=== PATIENT | female | born 1995 | race Caucasian/White ===

== ENCOUNTER 2024-06-19 05:21 | Emergency (ER) | payer OTHER ==
[2024-06-19] MEDS: HYDROcodone/APAP 5-325MG 1 EACH TAB PO STA (05:48)
[2024-06-19] MEDS: PROPARACAINE 0.5% OPHTH DROPS 15 ML BTL LEFT EYE STA (06:24)
[2024-06-19] MEDS: FLUORESCEIN STRIPS 1 MG STRIP LEFT EYE ONE (06:24)
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
[2024-06-19] MEDS: TOPICAL SKIN ADHESIVE 1 EACH AMP TOPICAL ONE (06:46)
[2024-06-19] MEDS: HYDROmorphone 1 MG/ML 1 ML SYRINGE IM STA (06:48)
[2024-06-19] MEDS: oxyCODONE-APAP 10-325MG 1 EACH TAB PO STA (06:54)
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
[2024-06-19] MEDS: ONDANSETRON 4 MG/2 ML VIAL IM STA (07:16)
[2024-06-19 07:38] VITALS: BP 117/71; PULSE 68; RESP 18; TEMP 97.9
[2024-06-19] MEDS: ACET/COD 300 MG/30 MG STARTER PACK 6 TAB BTL PO STA (07:43)
== END 2024-06-19 07:48 | disposition home or self-care (01) ==
LOC: EC 05:21
DX: S00.12XA Contusion of left eyelid and periocular area, initial encounter (principal); S00.81XA Abrasion of other part of head, initial encounter; F17.290 Nicotine dependence, other tobacco product, uncomplicated; Y04.0XXA Assault by unarmed brawl or fight, initial encounter
CPT/HCPCS: 12011; 70450; 70486; 81025; 99284; 99406